=== PATIENT | male | born 1975 | race African-American/Black ===

== ENCOUNTER 2018-03-12 18:11 | Emergency (ER) | payer SELFPAY ==
[2018-03-12] MEDS: KETOROLAC 60 MG/2 ML INJ. IM (20:02)
[2018-03-12] MEDS: DEXAMETHASONE SOD PHOS 20 MG/5 ML VIAL. IM (20:02)
== END 2018-03-12 21:43 | disposition home or self-care (01) ==
LOC: ER 18:11
DX: M70.61 Trochanteric bursitis, right hip (principal); Y93.89 Activity, other specified; M25.561 Pain in right knee
CPT/HCPCS: 96372; 99284; J1100; J1885

== ENCOUNTER 2019-02-26 21:25 | Emergency (ER) | payer SELFPAY ==
[~2019-02-26] VITALS: Ht 182.9 cm; Wt 72.6 kg
[~2019-02-26 21:25] MED LIST: DICL50TA4 PO; METH4TAB2 PO
[2019-02-26 22:21] VITALS: BP 134/88
[2019-02-26] MEDS ORDERED: FAMO20TA5 PO (22:53)
[2019-02-26] MEDS ORDERED: DIPH25CA58 PO (22:53)
[2019-02-26] MEDS ORDERED: PRED-220 PO (22:53)
--- NOTE | 2019-02-26 22:53 | PHYS DOC ---
Past Medical History Past Medical History: No Pertinent History Past Surgical History: No Surgical History Alcohol Use: Occasionally Drug Use: None Adult General Chief Complaint Chief Complaint: SKIN PROBLEM HPI HPI Patient is a 43 year old male who presents in the ED with a rash that began on Tuesday after working in the yard fixing a furnace, he believes he ran into poison juan. Review of Systems Review of Systems Constitutional: Denies fever or chills [] Musculoskeletal: Denies back pain or joint pain [] Integument: Reports rash Neurologic: Denies headache, focal weakness or sensory changes [] All other systems were reviewed and found to be within normal limits, except as documented in this note. Allergies Allergies Allergies Coded Allergies Type Severity Reaction Last Updated Verified No Known Drug Allergies 06/23/14 No Physical Exam Physical Exam Constitutional: Well developed, well nourished, no acute distress, non-toxic appearance. [] Skin: Warm, dry, small amount of erythematous rash in patient's bilateral lower extremities. Back: No tenderness, no CVA tenderness. [] Extremities: No tenderness, no cyanosis, no clubbing, ROM intact, no edema. [] Neurologic: Alert and oriented X 3, normal motor function, normal sensory function, no focal deficits noted. [] Psychologic: Affect normal, judgement normal, mood normal. [] Current Patient Data Vital Signs Vital Signs Date Time Temp Pulse Resp B/P (MAP) Pulse Ox O2 Delivery O2 Flow Rate FiO2 02/26/19 22:21 98.8 68 17 134/88 (103) 98 Room Air 98.8 EKG EKG [] Radiology/Procedures Radiology/Procedures [] Course & Med Decision Making Course & Med Decision Making Pertinent Labs and Imaging studies reviewed. (See chart for details) This is a 43-year-old male patient who presents to the ED today complaining of a rash on bilateral lower extremities that began Tuesday, he believes he ran into poison juan. Patient was discharged on prednisone and Benadryl and Pepcid. Follow up with traveling clerk in 2 weeks as needed. Dragon Disclaimer Dragon Disclaimer This electronic medical record was generated, in whole or in part, using a voice recognition dictation system. Departure Departure Impression: Primary Impression: Contact dermatitis Disposition: HOME, SELF-CARE Condition: STABLE Referrals: NO PCP (PCP) JOHNATHAN TORRES MD follow up in 2 weeks Patient Instructions: Contact Dermatitis, [id number] Additional Instructions: You were seen for a rash. Take the prescribed medications as ordered. Follow-up with your own doctor the provided doctor in 2 weeks. Scripts Diphenhydramine Hcl (BENADRYL) 25 Mg Capsule 1 CAP PO Q6-8HRS PRN for RASH, #30 CAP 0 Refills Prov: BRIAN BROUSSARD APRN 02/26/19 Famotidine (FAMOTIDINE) 20 Mg Tablet 20 MG PO HS, #7 TAB Prov: BRIAN BROUSSARD APRN 02/26/19 Prednisone (PREDNISONE ) 10 Mg Tablet 10 MG PO UD for PREDNISONE TAPER, #39 TAB 0 Refills Take 3 tablets by mouth twice a day for 3 days, then take 2 tablets by mouth twice a day for 3 days, then take 1 tablet by mouth twice a day for 3 days, then take 1 tablet by mouth daily x 3 days, then stop. Prov: BRIAN BROUSSARD APRN 02/26/19 Problem Qualifiers Primary Impression: Contact dermatitis Contact dermatitis type: allergic Contact dermatitis trigger: non-food plants Qualified Codes: L23.7 - Allergic contact dermatitis due to plants, except food BRIAN BROUSSARD APRN Feb 26, 2019 22:53
== END 2019-02-26 23:29 | disposition home or self-care (01) ==
LOC: ER 21:25
DX: L23.7 Allergic contact dermatitis due to plants, except food (principal)
CPT/HCPCS: 99283